=== PATIENT | female | born 2000 | race Caucasian/White ===

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

== ENCOUNTER → 2022-05-05 | Outpatient (CLI) | payer BC, OTHER | LOC: M WUC 12:43 | PROVIDERS: ATTEND Physician Assistant | DX: S40.012A Contusion of left shoulder, initial encounter (principal); X58.XXXA Exposure to other specified factors, initial encounter; Y92.9 Unspecified place or not applicable ==

== ENCOUNTER → 2023-06-11 | Outpatient (REF) | payer OTHER | LOC: M PLALAB 14:32 | PROVIDERS: ATTEND Advanced Practice Midwife | DX: Z53.9 Procedure and treatment not carried out, unspecified reason (principal) ==

== ENCOUNTER → 2023-06-18 | Outpatient (CLI) | payer BC, OTHER ==
[2023-06-18 17:35] LABS: HEMATOCRIT 37.5 % (36.0-47.0); HEMOGLOBIN 12.7 g/dl (12.0-15.5); MEAN CORPUSCULAR HEMOGLOBIN 28.7 pg (27.0-33.0); MEAN CORPUSCULAR HGB CONC 33.9 g/dl (32.0-36.5); MEAN CORPUSCULAR VOLUME 84.8 fl (80.0-96.0); PLATELET COUNT, AUTOMATED 283 10^3/uL (150-450); RED BLOOD COUNT 4.42 10^6/uL (4.00-5.40); WHITE BLOOD COUNT 9.7 10^3/uL (4.0-10.0)
[2023-06-18 18:02] LABS: HIV 1&2 SCREEN NEGATIVE (NEGATIVE)
[2023-06-18 18:11] LABS: HEPATITIS C VIRUS ABY INDEX 0.13 INDEX (<0.8)
[2023-06-19 12:44] LABS: GC DNA AMPLIFICATION NEGATIVE (NEGATIVE)
== END ==
LOC: M PLALAB 15:36
PROVIDERS: ATTEND Advanced Practice Midwife
DX: Z34.01 Encounter for supervision of normal first pregnancy, first trimester (principal)

== ENCOUNTER → 2023-11-11 | Outpatient (REF) | payer OTHER ==
[2023-11-11 20:14] LABS: AMORPHOUS SEDIMENT SMALL (NEGATIVE); APPEARANCE, URINE HAZY (CLEAR); BACTERIA, URINE AUTO 1+ (NEGATIVE); BILIRUBIN, URINE AUTO NEGATIVE (NEGATIVE); BLOOD, URINE BLOOD NEGATIVE (NEGATIVE); COLOR, URINE YELLOW (YELLOW); GLUCOSE, URINE (UA) AUTO NEGATIVE (NEGATIVE); KETONE, URINE AUTO NEGATIVE (NEGATIVE); LEUKOCYTE ESTERASE, URINE AUTO 3+ (NEGATIVE); NITRITE, URINE AUTO NEGATIVE (NEGATIVE); PROTEIN, URINE AUTO NEGATIVE (NEGATIVE); RBC, URINE AUTO 2 /HPF (0-3); SPECIFIC GRAVITY URINE AUTO 1.008 (1.002-1.035); SQUAMOUS EPITHELIAL CELL UR AU 8 /HPF (0-6); UROBILINOGEN, URINE AUTO 0.2 mg/dL (0.0-2.0); WBC, URINE AUTO 24 /HPF (0-3)
== END ==
LOC: M PLALAB 16:08
PROVIDERS: ATTEND Obstetrics & Gynecology
DX: Z34.93 Encounter for supervision of normal pregnancy, unspecified, third trimester (principal)

== ENCOUNTER 2023-11-12 20:51 | Inpatient (IN) | payer BC, OTHER ==
[~2023-11-12] VITALS: Ht 160 cm; Wt 89.1 kg
[2023-11-12] MEDS ORDERED: LR 1,000 ML IV ONE (21:55)
[2023-11-12 22:00] VITALS: BP 137/87
[2023-11-12] MEDS ORDERED: MAG Sulf (L&D) 4 GM/100 ML 4 GM in IV 1 EA IV ONE (22:25)
[2023-11-12] MEDS ORDERED: TRANEXAMIC ACID INJection 1,000 MG in NS 100 ML IV PRN (22:25)
[2023-11-12] MEDS ORDERED: METHYLERGONOVINE MALEATE 0.2MG/ML 1ML VIAL IM PRN (22:25)
[2023-11-12] MEDS ORDERED: PENICILLIN G POTASSIUM 5 MU IV 5 MU in D5W MINI-BAG PLUS 100 ML IV STA (22:25)
[2023-11-12] MEDS ORDERED: LIDOCAINE 1% MDV 20ML VIAL INFIL PRN (22:25)
[2023-11-12] MEDS ORDERED: CARBOPROST TROMETHAMINE 250 MCG/ML AMP IM PRN (22:25)
[2023-11-12] MEDS ORDERED: LACTATED RINGER'S 1000 ML IV STA (22:25)
[2023-11-12] MEDS ORDERED: BETAMETHASONE SOLUSPAN 6MG/ML 5ML VIAL IM SCH (22:30)
[2023-11-12 22:32] LABS: APPEARANCE, URINE CLEAR (CLEAR); BACTERIA, URINE AUTO 1+ (NEGATIVE); BILIRUBIN, URINE AUTO NEGATIVE (NEGATIVE); BLOOD, URINE BLOOD NEGATIVE (NEGATIVE); COLOR, URINE STRAW (YELLOW); GLUCOSE, URINE (UA) AUTO NEGATIVE (NEGATIVE); KETONE, URINE AUTO NEGATIVE (NEGATIVE); LEUKOCYTE ESTERASE, URINE AUTO 2+ (NEGATIVE); NITRITE, URINE AUTO NEGATIVE (NEGATIVE); PROTEIN, URINE AUTO NEGATIVE (NEGATIVE); RBC, URINE AUTO 1 /HPF (0-3); SPECIFIC GRAVITY URINE AUTO 1.004 (1.002-1.035); SQUAMOUS EPITHELIAL CELL UR AU 3 /HPF (0-6); UROBILINOGEN, URINE AUTO 0.2 mg/dL (0.0-2.0); WBC, URINE AUTO 7 /HPF (0-3)
[2023-11-12 22:44] LABS: HEMATOCRIT 31.1 % (36.0-47.0); HEMOGLOBIN 10.4 g/dl (12.0-15.5); MEAN CORPUSCULAR HEMOGLOBIN 26.4 pg (27.0-33.0); MEAN CORPUSCULAR HGB CONC 33.4 g/dl (32.0-36.5); MEAN CORPUSCULAR VOLUME 78.9 fl (80.0-96.0); PLATELET COUNT, AUTOMATED 395 10^3/uL (150-450); RED BLOOD COUNT 3.94 10^6/uL (4.00-5.40)
[2023-11-12] MEDS: MAG Sulf (OBGYN) 20GM/500ML 20,000 MG in IV 1 EA IV SCH (23:15)
[2023-11-12 23:24] VITALS: BP 142/77
[2023-11-13] VITALS (36 sets, daily range): BP systolic 113–148; BP diastolic 59–90
[2023-11-13 00:15] LABS: CHLAMYDIA DNA AMPLIFICATION NEGATIVE (NEGATIVE); GC DNA AMPLIFICATION NEGATIVE (NEGATIVE)
[2023-11-13] MEDS: PEN G POT 3,000,000 UNIT/50 ML 3,000,000 UNIT in IV 1 EA IV SCH ×6 (03:10→23:25)
[2023-11-13] MEDS ORDERED: NALOXONE INJ 0.4MG/1ML VIAL IV PRN (04:35)
[2023-11-13] MEDS ORDERED: EPIDURAL/PCA KEYS XX PRN (04:35)
[2023-11-13] MEDS ORDERED: diphenhydrAMINE 50MG/ML VIAL IV PRN (04:35)
[2023-11-13] MEDS ORDERED: LR 500 ML IV PRN (04:35)
[2023-11-13] MEDS ORDERED: ePHEDrine SULFATE 25 MG/5 ML(5MG/ML) SYRINGE IVP PRN (04:35)
[2023-11-13] MEDS ORDERED: REFLB XX ONE ×3 (04:45→19:43)
[2023-11-13] MEDS: FENTANYL/ROPIVACAINE/NACL BAG 100 ML EPIDURAL SCH ×3 (05:05→21:27)
[2023-11-13] MEDS: LR 1,000 ML IV SCH ×3 (06:25→17:05)
[2023-11-13] MEDS: ONDANSETRON 4MG 2ML VIAL IV PRN ×2 (08:32→17:08)
[2023-11-13] MEDS: MAG Sulf (OBGYN) 20GM/500ML 20,000 MG in IV 1 EA IV SCH ×2 (08:39→18:39)
[2023-11-13] MEDS ORDERED: BETAMETHASONE SOLUSPAN 6MG/ML 5ML VIAL IM SCH (10:30)
[2023-11-13] MEDS ORDERED: FENTANYL 2MCG/ML ROPIVACAINE 0.2% IN 0.9% NACL 100ML IVBAG As Ordered ONE (19:50)
[2023-11-13] MEDS ORDERED: ONDANSETRON 4MG 2ML VIAL IV ONE (20:15)
[2023-11-14] VITALS (20 sets, daily range): BP systolic 106–135; BP diastolic 54–72; TEMP 98.3; O2SAT 98
[2023-11-14] MEDS ORDERED: FENTANYL 2MCG/ML ROPIVACAINE 0.2% IN 0.9% NACL 100ML IVBAG As Ordered ONE ×2 (03:36→11:43)
[2023-11-14] MEDS: PEN G POT 3,000,000 UNIT/50 ML 3,000,000 UNIT in IV 1 EA IV SCH ×3 (04:03→11:53)
[2023-11-14] MEDS: FENTANYL/ROPIVACAINE/NACL BAG 100 ML EPIDURAL SCH ×2 (04:04→11:51)
[2023-11-14] MEDS: LR 1,000 ML IV SCH (07:24)
[2023-11-14] MEDS ORDERED: OXYTOCIN DRIP 30 UNITS in IV 1 EA IV SCH ×2 (08:40→15:45)
[2023-11-14] MEDS ORDERED: IBUPROFEN 600MG TAB PO PRN (15:10)
[2023-11-14] MEDS ORDERED: DIBUCAINE 1% OINTMENT 30GM TOP PRN (15:10)
[2023-11-14] MEDS ORDERED: RHOGAM 300MCG (1500IU) INJ IM SCH (15:10)
[2023-11-14] MEDS ORDERED: METHYLERGONOVINE MALEATE 0.2 MG TAB PO PRN (15:10)
[2023-11-14] MEDS ORDERED: ONDANSETRON 4MG 2ML VIAL IV PRN (15:10)
[2023-11-14] MEDS ORDERED: DOCUSATE SODIUM 100MG CAPSULE PO PRN (15:10)
[2023-11-14] MEDS ORDERED: OXYTOCIN 30UNITS IN 0.9% NaCl 500ML IV BAG As Ordered ONE (15:28)
[2023-11-14] MEDS ORDERED: LR 1,000 ML IV SCH (16:15)
[2023-11-14] MEDS: ACETAMINOPHEN 500 MG TAB PO PRN (17:38)
[2023-11-14] MEDS: IBUPROFEN 800 MG TAB PO PRN (17:43)
[2023-11-15] MEDS: IBUPROFEN 800 MG TAB PO PRN ×3 (01:10→16:39)
[2023-11-15] MEDS: ACETAMINOPHEN 500 MG TAB PO PRN ×2 (05:43→13:21)
[2023-11-15 06:12] VITALS: BP 114/59; O2SAT 98
[2023-11-15] MEDS: PRENATAL VITAMINS CHEWABLE TABLET PO SCH (08:56)
[2023-11-15 18:00] VITALS: BP 112/66; O2SAT 95
[2023-11-15] MEDS: ACETAMINOPHEN TAB 650MG DOSE (2X325MG) PO PRN (20:24)
[2023-11-16] MEDS: ACETAMINOPHEN TAB 650MG DOSE (2X325MG) PO PRN (01:02)
[2023-11-16 06:00] VITALS: BP 124/78; O2SAT 97
[2023-11-16] MEDS ORDERED: ACET1TAB55 PO (08:17)
[2023-11-16] MEDS ORDERED: IBUP-1022 PO (08:17)
[2023-11-16] MEDS ORDERED: MEASLES,MUMPS,RUBELLA VACCINE INJ (MMR-II) SC.IMMUN ONE (09:00)
[2023-11-16] MEDS: PRENATAL VITAMINS CHEWABLE TABLET PO SCH (09:54)
== END 2023-11-16 12:25 | disposition home or self-care (01) | DRG 560 ==
LOC: M LDO 20:51 → M LDI 22:29 → M OBS 11-14 17:00
PROVIDERS: ADMIT Advanced Practice Midwife; ATTEND Advanced Practice Midwife
PROC: 10E0XZZ Delivery of Products of Conception, External Approach (ICD-10-PCS; principal; 2023-11-14)
PROC: 0HQ9XZZ Repair Perineum Skin, External Approach (ICD-10-PCS; 2023-11-14)
DX: O60.14X0 Preterm labor third trimester with preterm delivery third trimester, not applicable or unspecified (principal); O70.0 First degree perineal laceration during delivery; Z37.0 Single live birth; Z3A.33 33 weeks gestation of pregnancy

== ENCOUNTER → 2024-06-08 | Outpatient (REF) | payer BC, OTHER ==
[~2024-06-08] MED LIST: ACET1TAB55 PO; IBUP-1022 PO
[2024-06-08 16:48] LABS: Trichomonas vaginalis (AMP) NOT DETECTED (NEGATIVE)
[2024-06-08 17:11] LABS: GC DNA AMPLIFICATION NEGATIVE (NEGATIVE)
== END ==
LOC: M SFHCWAGY 15:15
PROVIDERS: ATTEND Obstetrics & Gynecology
DX: Z12.4 Encounter for screening for malignant neoplasm of cervix (principal); Z11.3 Encounter for screening for infections with a predominantly sexual mode of transmission; R87.618 Other abnormal cytological findings on specimens from cervix uteri
CPT/HCPCS: 87661; 87810; 87850; G0123